=== PATIENT | female | born 1955 | race Caucasian/White ===

== ENCOUNTER → 2023-01-27 13:47 | Outpatient (BNVA) | payer MEDICARE, SELFPAY | PROVIDERS: PCP Family Medicine; Referring Provider Family Medicine | DX: S89.92XA Unspecified injury of left lower leg, initial encounter (principal); X58.XXXA Exposure to other specified factors, initial encounter; M17.12 Unilateral primary osteoarthritis, left knee | CPT/HCPCS: 99203 ==

== ENCOUNTER 2023-08-01 15:44 | Outpatient (CLI) | payer MEDICARE, SELFPAY ==
--- NOTE | 2023-08-01 10:30 | DI.RAD_ITS ---
Exam(s) XR HIP RT COMPLETE AP PELVIS EXAM: XR HIP RT COMPLETE AP PELVIS CLINICAL HISTORY: R hip pain. TECHNIQUE: 2D digital imaging was performed of the right hip. Two images were obtained. AP pelvis a nd lateral right hip views were obtained. COMPARISON: No exams were available for comparison FINDINGS: BONES: No acute fracture is present. No bony destructive lesion is seen. JOINTS: There is marked narrowing of the right hip joint space. Osteophytes are seen in the right ac etabulum and the right femoral head. The left hip is unremarkable. The sacroiliac joints and symphy sis pubis are well maintained. SOFT TISSUE: Normal. IMPRESSION: Marked osteoarthritis of the right hip. DATA REPOSITORY: RADIATION DOSE DELIVERED:
== END 2023-08-01 15:45 | disposition home or self-care (01) ==
LOC: DIORS 15:45
PROVIDERS: PCP Internal Medicine; Referring Provider Internal Medicine; Visit Provider Student in an Organized Health Care Education/Training Program
DX: M16.11 Unilateral primary osteoarthritis, right hip
CPT/HCPCS: 20611; 73502; J1040

== ENCOUNTER 2023-08-31 05:48 | Day surgery (SDC) | payer MEDICARE, SELFPAY ==
[2023-08-31] VITALS (9 sets, daily range): BP systolic 111–180; BP diastolic 44–78; PULSE 57–75; RESP 11–18; TEMP 36.1–36.4; O2SAT 95–100; BMI 32.8
[2023-08-31] MEDS: Lactated Ringers 1,000 ML 80 ML IV (06:54)
--- NOTE | 2023-08-31 07:01 | W.ANESPRE ---
General Info Date of Service Date Performed: 08/31/23 Height: 5 ft 2 in Weight: 81.6 kg Body Mass Index (BMI): 32.8 Surgical Procedure: Operation Date: 08/31/23 07:50 Proposed Procedure Side Surgeon p Hip Total Hip Anterior, ACTIS Right Nguyễn Duran MD Meds Allergies and Home Medications Allergies Allergy/AdvReac Type Severity Reaction Status Date / Time aspirin [From Aggrenox] Allergy Severe Other (See Verified 08/31/23 06:12 Comment) dipyridamole [From Aggrenox] Allergy Severe Other (See Verified 08/31/23 06:12 Comment) simvastatin [From Zocor] Allergy Intermediate Other (See Verified 08/31/23 06:12 Comment) gabapentin AdvReac Other (See Verified 08/31/23 06:12 Comment) Home Medication Medication Instructions Recorded atorvastatin 20 mg tablet 20 mg PO DAILY 01/11/23 enalapril maleate 10 mg tablet 10 mg PO DAILY 01/11/23 pantoprazole 20 mg tablet,delayed 20 mg PO DAILY 01/11/23 release acetaminophen 500 mg tablet 1,000 mg (2 x 500 mg) PO TID #90 08/31/23 tabs aspirin 81 mg tablet,delayed 81 mg PO BID #60 tabs 08/31/23 release celecoxib 200 mg capsule 200 mg PO BID #60 caps 08/31/23 dexamethasone 4 mg tablet 4 mg PO DAILY #2 tabs 08/31/23 oxycodone 5 mg tablet 5 mg PO Q4H PRN pain #20 tabs 08/31/23 Current Visit Medications: Current Medications Generic Name Dose Route Start Last Admin Trade Name Yannickq PRN Reason Stop Dose Admin Acetaminophen 1,000 mg 09/01/23 06:00 Acetaminophen 500 Mg Tab PO 10/01/23 05:59 PREOP RUSS Celecoxib 400 mg 09/01/23 06:00 Celecoxib 200 Mg Cap PO 10/01/23 05:59 PREOP RUSS Ringer's Solution 1,000 mls @ 80 mls/hr 08/31/23 06:00 08/31/23 06:54 IV 08/31/23 23:59 80 mls/hr INFUSION RUSS Administration Cefazolin Sodium/Dextrose 2 gm in 50 mls @ 100 mls/hr 08/31/23 06:00 Ancef Duplex IVPB 08/31/23 23:59 PREOP RUSS Tranexamic Acid/Sodium Chloride 100 mls @ 600 mls/hr 09/01/23 06:00 IVPB 10/01/23 05:59 PREOP [facility] IV Miscellaneous Supplies 1 each 08/31/23 06:00 Iv Access IV 08/31/23 23:59 DIRECTED RUSS Sodium Chloride 0 ml 08/31/23 06:00 Normal Saline Flush 10 Ml Syr IV 08/31/23 23:59 PRN PRN Sodium Chloride 0 ml 08/31/23 06:00 Normal Saline 10 Ml Vial IJ 08/31/23 23:59 DIRECTED PRN Sterile Water 0 ml 08/31/23 06:00 Water,Injection,Sterile 10 Ml Vial IJ 08/31/23 23:59 DIRECTED PRN PFSH Active Problems Active Problems: Problem Status Onset Code Osteoarthritis of right hip M16.11 Left knee injury S89.92XA Degenerative arthritis of left knee M17.12 Trigeminal neuralgia G50.0 Spinal stenosis in cervical region M48.02 Prediabetes R73.03 Obesity E66.9 Chronic neck pain M54.2, G89.29 Cervicogenic headache G44.86 Basal cell carcinoma of skin C44.91 Medical History Medical History Metatarsal bone fracture Hypertensive disorder Hyperlipidemia History of malignant neoplasm of uterine body GERD (gastroesophageal reflux disease) Tobacco Smoking/Tobacco Use Status: Never Alcohol Alcohol Intake: current Alcohol intake frequency: a few times a month Substance Use Substance use: Never Substance use type: does not use Vital Signs and Lab Results Vital Signs Most Recent Vital Signs in EMR: Most Recent Vital Signs Temp Pulse Resp BP Pulse Ox 36.3 C L 74 16 180/69 H 100 08/31/23 06:16 08/31/23 06:16 08/31/23 06:16 08/31/23 06:16 08/31/23 06:16 Lab Results Blood Type / Crossmatch: No Data to Display Complete Blood Count: No Data to Display Complete Metabolic Panel: No Data to Display Liver Function Panel: No Data to Display Coagulation Panel: No Data to Display Cardiac Panel: No Data to Display Arterial Blood Gas: No Data to Display Venous Blood Gas: No Data to Display Pancreas Panel: No Data to Display Thyroid Panel: No Data to Display Infectious Disease: No Data to Display Blood Cultures: No Data to Display Toxicology Panel: No Data to Display Anesthesia Assessment and Plan Anesthesia History Personal History: No History of Anesthesia Complications Family History: No Family History of Anesthesia Complications Exercise Tolerance Exercise Tolerance: Metabolic Equivalents>4 Pertinent Negatives Pertinent Negatives: No Symptoms of GERD, No Major Cardiovascular Symptoms or Complaints, No Major Pulmonary Symptoms or Complaints and No History of CVA/TIA Cardiac & Pulmonary Exam Cardiac Exam: Normal S1/S2 Heart Sounds Pulmonary Exam: Clear Bilateral Breath Sounds Implantable Cardiac Device Does patient have a Pacemaker or an ICD?: No Airway Exam Known Difficult Airway: No Mallampati Class: 2 Mouth Opening: Normal (> 3cm) Thyromental Distance: Greater than 3 cm Neck Range of Motion: Full ROM and Other (Known cervical spinal stenosis, patient denies symptoms. Reports from past trauma) Neck Circumference: Normal Teeth Condition: Normal Dentition ASA Classification ASA Score: ASA 2 Emergency Case?: No NPO Status NPO Status: NPO Clears >2 hours, Solids >8 hours Anesthesia Plan Resuscitation Status: Full Code Anesthesia Technique: Spinal Anesthesia Airway Planned: Natural Airway Monitors Used: Standard Monitors Preoperative Comments:: GERD well controlled on pantoprazole: took today
[2023-08-31] MEDS: Acetaminophen 500 MG TAB 1000 MG PO (07:12)
[2023-08-31] MEDS: Celecoxib 200 MG CAP 400 MG PO (07:13)
--- NOTE | 2023-08-31 07:20 | PDOC.DSDIS_ITS ---
Date of service: 08/31/23 Time of Service: 07:20 Discharge Plan Disposition Patient Disposition: Home Condition: Good Discharge Details Reason For Visit: R THR Attending Provider: Nguyễn Duran Primary Care Provider: Yumi Jackson Home Meds and New Rx's Prescriptions: New celecoxib 200 mg capsule 200 mg PO BID Qty: 60 0RF aspirin 81 mg tablet,delayed release (DR/EC) 81 mg PO BID Qty: 60 0RF acetaminophen 500 mg tablet 1,000 mg PO TID Qty: 90 3RF dexamethasone 4 mg tablet 4 mg PO DAILY Qty: 2 0RF oxycodone 5 mg tablet 5 mg PO Q4H MDD 6 tabs PRN (Reason: pain) Qty: 20 0RF Continued enalapril maleate 10 mg tablet 10 mg PO DAILY atorvastatin 20 mg tablet 20 mg PO DAILY pantoprazole 20 mg tablet,delayed release (DR/EC) 20 mg PO DAILY Discontinued meloxicam 7.5 mg tablet 7.5 mg PO BID aspirin [Adult Aspirin Regimen] 81 mg tablet,delayed release (DR/EC) 81 mg PO DAILY Discharge Instructions Additional Instructions: Total Hip Discharge Instructions Activity: The most important activity is to walk. You should try to take short walks a few times a day. You have no restrictions on movement or positioning, but do not try to force what you do. You will find some stiffness and weakness with hip flexion (lifting your knee). Do not try to strengthen this too early, continue to practice walking and stairs and this will come. - Outpatient physical therapy can be helpful to help return you to a normal gait and improve your flexibility and strength. This can start around 2 weeks. For some patients, it?s not necessary. Usually this is determined at the time of discharge or at the first post-operative visit. - You should wear the RADHA hose on both legs for 2 weeks. Dressing: Keep the surgical dressing in place for at least one week. After the first week it may be removed and replace with light gauze and tape or nothing. It may get wet after 3 days but avoid soaking the dressing. If it gets wet, just lightly pat dry. It is important to always keep some gauze between skin folds, especially when you are sitting. Spend some time with the wound exposed when you are lying flat as the incision does wrinkle onto itself. Medications: - You should take Tylenol and an anti-inflammatory Celebrex as your primary pain control medications. If the Celebrex is too expensive or not covered, please call the office for another alternative (Advil/Ibuprofen or Naproxen/Aleve). - You have been prescribed a stronger pain medication Oxycodone for breakthrough pain, take as needed as prescribed. - You will continue your Pantoprozole to help reduce stomach acid and reflux. - You have also been prescribed Decadron to help with post-operative nausea and pain. You will take this for two days starting tomorrow. - You will be taking Aspirin 81mg twice a day for DVT prevention unless instructed otherwise. - If you have constipation you should take Colace or Miralax (both [id number]). It takes most people 3-4 days to have a bowel movement. Follow-up: 2 weeks If you have any acute concerns or questions, please do not hesitate to contact the office at [phone]. You may contact Dr. Duran with any questions after hours through the hospital at [phone] or on his cell phone at [phone]. Referrals: Nguyễn Duran MD [ [facility]FF [facility]YSICIAN] - Equipment/Supplies: Walker Activity:: Activity as Tolerated Shower/Bathe:: 72 hours Diet:: As Tolerated DS: Diagnosis Discharge Diagnosis (1) Osteoarthritis of right hip: Status: Acute
[2023-08-31] MEDS: ceFAZolin 2 GM/50 ML BAG IVPB (07:44)
--- NOTE | 2023-08-31 07:56 | W.PM.OP ---
Date of service: 08/31/23 Time of Service: 07:56 Operative Note Operative Note DATE OF PROCEDURE: 08/31/23 PRE-OP DIAGNOSIS: Right Hip Osteoarthritis POST-OP DIAGNOSIS: same PROCEDURE: Right Anterior Total Hip Arthroplasty with Intraoperative Navigation SURGEON: Nguyễn Duran FIRE HOSE CURER: Vernon Soto ANESTHESIA TYPE: Spinal Refer to Anesthesia Record PATHOLOGY: none sent TOURNIQUET TIME: 0 COMPLICATIONS: None Patient was transported to: PACU Patient's condition: stable Implants: 1. Depuy Stinnett Acetabular Component, 48mm 2. Depuy Acetabular Liner, [id number] 3. Depuy Actis High Offset Collared Femoral Stem, Size 3 4. Depuy Altrx Ceramic Femoral Head, Size 32+1mm Indications: I have seen Taylor in clinic for symptoms of hip arthritis, confirmed with radiographic findings. Taylor has exhausted nonoperative methods and was having significant limitations in daily function and desired better function and less pain. I discussed the technical details of a hip replacement. I explained the risks of the procedure to include, but not limited to, bleeding, infection, pain, stiffness, fracture, damage to nerves and vessels, damage to muscles and tendons, loosening, instability, leg length inequality, need for repeat procedure, blood clot and cardiopulmonary demise. Despite these risks, she elected to proceed. Findings: There was significant signs of arthritis throughout the hip. Procedure Description: Taylor was greeted in the preoperative holding area where the correct side was identified and marked. The consent was reviewed with the patient and signed. The history and physical was updated. All questions were answered. She was taken back to the operating room. A spinal anesthestic was then administered. The feet were wrapped with cast padding and Coban and then placed into the boot liners and then into the boots. Care was taken to protect the skin and make sure the heels were fully down and the boots were stable. The patient was then positioned onto the HANA table. Both legs were held in a neutral position. SCDs were applied. The patient was then slid down onto a peroneal post. Prophylactic antibiotics in the form of Cefazolin were administered. 1g of Tranxemic Acid was given intravenously within 30 minutes of incision. The right leg was then prepped with Chloraprep and draped in a standard fashion. A second prep with Chloraprep was performed prior to placement of a shower-curtain type drape with Iodine impregnated skin protection. A timeout to confirm correct identity, side and site, procedure, allergies, anesthesia, and medical concerns was performed. An obliquely oriented incision was made starting lateral to the ASIS and running distal over the Tensor Fascia Karo (TFL) muscle belly toward the fibular head, approximately 10cm. The skin and soft tissue was dissected sharply, through Dontae?s fascia, and to the fascia of the TFL. With the fascia and superior border of the IT band identified, the fascia was incised with a new knife just above any perforators from the IT band. The TFL muscle belly was bluntly dissected away from the fascia and moved laterally. The fat between TFL and rectus was identified to ensure the dissection was not within the TFL. Blunt dissection created space between abductors and the capsule and retractor was placed over the lateral femoral neck. The fibers of the rectus femoris tendon were identified and these were freed from the anterior capsule. A second cobra retractor was placed around the medial femoral neck. The TFL was further retracted laterally to show the deep fascia. Careful dissection through this layer identified three main crossing vessels of the lateral femoral circumflex. These were cauterized in multiple locations and then cut without any noticeable bleeding. The TFL was further released bluntly from the deep fascia to expose anterior hip capsule and fat The Joseph orthopaedic retractor was then placed beneath the TFL and against sartorius and medial soft tissues to protect and retract the soft tissues. A T-capsulotomy was then performed starting at the superior lateral acetabulum and moving distally to the intertrochanteric ridge. These capsular flaps were tagged with a No. 1 Ethibond and elevated from within. The capsular flaps were released to the shoulder of the lateral neck and to the lesser trochanter to give excellent visualization of the proximal femur. A neck osteotomy was performed using an oscillating saw based on preoperative templates. This cut started in the shoulder and of the lateral neck and exited medially. The saw was at all times directed medially to avoid injury to the greater trochanter. Gross traction was applied to the leg and the osteotomy opened. The femoral head was removed with a corkscrew, making sure to protect the TFL on its exit. Traction was released after head removal. This was measured on the back table to determine the starting reamer size. Portions of the rectus obscuring visualization were minimally elevated off the superior acetabulum. An anterior retractor was placed over the anterior wall between capsule and labrum and attached to the Gripper retraction system. The femur was rotated to 90 degrees and medial capsule was fully released until the lesser trochanter was palpable and visible; the femur was returned to 30 degrees. A posterior retractor was placed similarly between capsule and labrum. This provided excellent visualization. The contents of the cotyloid fossa were removed with electrocautery and the labrum was removed with a knife. There was a notable floor osteophyte. There was significant chondromalacia of the superior acetabulum. Acetabular reaming began with a 44mm reamer. This first reaming was directed anterior to posterior and medial to get down to the true floor. This was inspected and reamed until the true floor was reached. The anterior retractor was then released and entry and exit was provided by traction on the capsular flaps. I then reamed sequentially up to a 48mm reamer where good fit was obtained. The larger reamers were oriented based on anatomical reference of the anterior and lateral braswell to ensure proper abduction and anteversion. Positioning and size was confirmed with the fluoroscopy. A 48mm Depuy Stinnett acetabular component was selected. The acetabulum was reamed around the periphery with the selected acetabular size to prevent a rim fit. The deep tissues were irrigated. The acetabular component was then impacted in a position of about 40-45 degrees of abduction and 15-20 degrees of anteversion, using the patient?s anatomy as the ultimate landmark. Fluoroscopy was used to confirm this. There was excellent director executive communications of the acetabular component and the inserting handle was removed. The acetabular liner, Depuy [id number] polyethylene liner, was inserted and lined up with the tines of the acetabular component. There was no soft tissue interposition. The liner was then impacted into position and confirmed to be well-seated. A portion of the donita-articular cocktail was then injected around the acetabulum into the capsule and periosteum. This cocktail consisted of 123mg of Ropivacaine, 0.25mg of Epinephrine, 0.04mg of Clonidine, and 15mg of Ketorolac, diluted to 50cc. The leg was rotated to 120 degrees. Any remaining medial capsule was released until the lesser trochanter was easily palpable. A retractor was placed medially. The lateral capsule was further released into the shoulder to allow access to the greater trochanter. A Jackson retractor was placed over the greater trochanter which allowed the trochanter to flip in front of the capsule for excellent exposure. The leg was brought down into maximal extension and 20 degrees of adduction while ensuring there was no impingement on the acetabulum. Any remnant capsule within the trochanter was released. Piriformis and obturator externis were identified and protected. There was excellent access to the proximal femur. The lateral neck remnant was removed with a rongeur. A blunt canal probe was used to identify the canal and trajectory for later broaching. A box osteotome initiated the broach course. A small curved rasp and a curved curette were used to work laterally. Broaching then began with a starter Actis broach. This was inserted manually around the trochanter and into the canal before mallet blows. The broach was seated to a few millimeters below the cut level based on the neck cut and the preoperative template. Sequential broaching was continued with the [employer] pneumatic broaching device until a tight fit was obtained with good rotational control of the femur. A trial high offset neck was inserted along with a +1 trial head. The leg was brought out of extension and adduction and then reduced with traction and internal rotation. The leg was stable anteriorly in a position of 30 degrees of extension and 90 degrees of external rotation. Fluoroscopy was used to ensure there was no fracture and the stem was seated well. Leg lengths were checked with an AP pelvis and pelvic reference points. [employer] navigation system was used to confirm appropriate positioning and leg length and offset. Once content with the desired offset and leg lengths, the leg was brought back into extension, external rotation and adduction. The periosteum and surrounding tissue was injected with remaining portion of the donita-articular cocktail. The proximal femur was irrigated as well as the deep tissues. The Depuy Actis high offset collared stem, size 2, was then manually inserted into the proximal femur making sure to control rotation. It was then malleted into position with light blows, giving breaks to allow bone expansion and decrease risk of fracture. The selected Depuy Altrx Ceramic Head, size 32+1mm, was then placed onto the clean and dry trunnion and secured with impaction onto the tapered fit. The leg was brought back out of extension and adduction and reduced with traction and internal rotation. Stability was confirmed with no shuck at 90 degrees of external rotation and 30 degrees of extension. No impingement through range of motion arc. Final x-ray images were obtained with fluoroscopy to confirm adequate positioning and no intraoperative fracture. The deep tissues were thoroughly irrigated with Surgiphor, betadine solution. This was allowed to sit in the wound for 3 minutes before being thoroughly irrigated out with normal saline. The capsule was then reapproximated with the previously placed Ethibond sutures. The TFL fascia was finally closed with a No. 2 Stratafix, barbed suture. Deep tissues were then reapproximated with 0 Vicryl and a running 2-0 Vicryl. The skin was closed with a running 4-0 Monocryl in a subcuticular fashion. This was reinforced with skin glue. A Mepilex silver dressing was applied. At the end of the case, all counts were correct. Taylor was transferred to the hospital bed without difficulty and suffering no apparent complication. Taylor has a good prognosis. Physical therapy will start today and without restrictions, weight-bearing as tolerated. Aspirin 81mg BID will be used for DVT prophylaxis.
--- NOTE | 2023-08-31 09:05 | DI.RAD_ITS ---
Exam(s) XR HIP RT IN OR EXAM: XR HIP RT IN OR CLINICAL HISTORY: OSTEOARTHRITIS RIGHT HIP. TECHNIQUE: 2D and realtime digital imaging was performed. COMPARISON: CR XR HIP RT COMPLETE AP PELVIS from 08/01/2023 FINDINGS: Hard copy images show placement of a right hip prosthesis. The alignment appears satisfactory. Please see procedure note for details. Fluoro time: 25.5seconds RADIATION DOSE DELIVERED: Ka,r=4.08 mGy
[2023-08-31] MEDS: fentaNYL 100 MCG/2 ML VIAL IVP (09:51)
--- NOTE | 2023-08-31 10:36 | W.ANESPOSTOP ---
Postoperative Evaluation Date, Time and Location Date Performed: 08/31/23 Time Performed: 10:12 Patient Location: Day Surgery Unit Vital Signs Most Recent Imported Vital Signs: Most Recent Vital Signs Temp Pulse Resp BP Pulse Ox 36.3 C L 57 L 16 145/61 H 100 08/31/23 10:10 08/31/23 10:10 08/31/23 10:10 08/31/23 10:10 08/31/23 10:10 Pain Score Most Recent Pain Score: Most Recent Pain Score Pain Level 4 08/31/23 10:00 Assessment Mental Status: Awake (Alert & Oriented to Patient Baseline) Airway and Respiratory Function: Patent airway with normal (patient baseline) respiratory exam Cardiovascular Function: Hemodynamically Stable Hydration Status: Adequately Hydrated Nausea & Vomiting: No Nausea or Vomiting Pain: Pain is tolerable per patient Peripheral Nerve Block: Patient did not receive a nerve block
[2023-08-31] MEDS: oxyCODONE 5 MG TAB PO (10:46)
--- NOTE | 2023-08-31 12:48 | PT.INIE ---
PT Notes Visit Reasons: R THR Physical Therapy Day Surgery Initial Evaluation Date: 08/31/2023 Referring Doctor: ANDREE Meadows PT Orders: PT CONSULT: S/P Ortho Surgery Precautions: WBAT on the R LE with AD. Patient Profile/Admitting Diagnosis: Taylor is a 67-year-old female with unilateral primary osteoarthritis of the right hip and status post right anterior total hip arthroplasty on postoperative day 0. PMHX: All Active Problems (Updated 08/01/23 @ 10:07 by Rema Mitchell RN) Osteoarthritis of right hip (Acute) POCUS--BUPIVICAINE ONLY Left knee injury (Acute) Degenerative arthritis of left knee (Acute) Trigeminal neuralgia (Acute) Spinal stenosis in cervical region (Acute) Prediabetes (Acute) Obesity (Chronic) Chronic neck pain (Acute) Cervicogenic headache (Acute) Basal cell carcinoma of skin (Acute) Medical History (Updated 08/01/23 @ 10:07 by Rema Mitchell RN) Metatarsal bone fracture Hypertensive disorder Hyperlipidemia History of malignant neoplasm of uterine body GERD (gastroesophageal reflux disease) Social History/Home Situation: Lives with in a private home with 6 steps to enter with a rail on one side and a wall on the other side. Independent with all aspects of ADLs prior to surgery although has had difficulty with mobility performance due to worsening arthritis. Equipment Owned/DME: None Subjective: Reported burning sensation in the R hip and side of R thigh that subsided with mobility performance. Denied headache, chest pain, and lightheadedness throughout session. Per Nurse Jaida, patient has been mobilized out of bed using walker as she felt she needed to move from beig very stiff. Objective: General Observation: ANDREW wraps to R LE. Cold pack on R hip. TEDS to L leg and foot Mental Status: A and O x 4 Pain: As above ROM: Right Lower Extremity: Hip flexion WFL. Hip abduction WFL. Knee flexion WFL. Ankle dorsiflexion WFL. Ankle plantarflexion WFL. Left Lower Extremity: Hip flexion WFL. Hip abduction WFL. Knee flexion WFL. Ankle dorsiflexion WFL. Ankle plantarflexion WFL. Strength: Right Lower Extremity: Hip flexors 4-/5. Hip abductors 4-/5. Knee flexors 4/5. Knee extensors 4-/5. Ankle dorsiflexors 5/5. Ankle plantarflexors 5/5. Left Lower Extremity:Hip flexors 5/5. Hip abductors 5/5. Knee flexors 5/5. Knee extensors 5/5. Ankle dorsiflexors 5/5. Ankle plantarflexors 5/5. Sensation: Intact as to pain and light pressure in BLE Bed Mobility/Transfers: Minimal cueing provided for use of B hands as needed for support, movement sequence, AD management, and posture to reduce fall risk and minimize pain report. Sit to stand stand by assist Stand to sit stand by assist Bed to chair stand by assist Gait: Facilitated safe and correct performance of level surface ambulation covering a distance of 150 feet using front wheeled walker with step to reciprocal heel toe gait pattern with minimal verbal cueing provided for correct to gait pattern, AD management, and posture to reduce fall risk and minimize pain report. Stairs: Facilitated safe and correct negotiation of 3 x 4 inch steps and 4 x 6 inch steps while holding onto bilateral rails with step to gait pattern requiring standby assist only and minimal verbal cueing for movement sequence, hand placement, and posture to reduce fall risk and minimize pain report. Balance: Static Sitting: Normal Dynamic Sitting: Normal Static Standing: Fair Dynamic Standing: Fair Special Tests: Mobility Limitations Standardized Measure [facility] AM-PAC 6 clicks Basic Mobility Inpatient Short Form: Raw Score: 18 CMS Score: 47% deficit Informed Consent/Education: Patient instructed in purpose of PT consult. Packet containing NANCY exercise protocol has been given to patient. Education and training on initial set of exercises that can be done at home have been completed with patient. Trained patient with correct performance of exercises below to maximize motor control, joint flexibility, soft tissue extensibility of the [] hip musculature to facilitate return to independent functional mobility performance. Access Code: [email or web address] URL: [email or web address] Date: 08/31/2023 Prepared by: Loyda Salvador Exercises - Gluteal Sets - 1 x daily - 7 x weekly - 1 sets - 10 reps - 5 hold - Supine Heel Slide - 1 x daily - 7 x weekly - 1 sets - 10 reps - 5 hold - Supine Ankle Pumps - 1 x daily - 7 x weekly - 1 sets - 10 reps - 5 hold - Seated March - 1 x daily - 7 x weekly - 1 sets - 10 reps - 5 hold - Seated Long Arc Quad - 1 x daily - 7 x weekly - 1 sets - 10 reps - 5 hold Assessment: Patient requires use of a front wheeled walker for mobility ADL performance to maximize independence and reduce fall risk. Patient presents with clinical signs and symptoms consistent with current/admitting diagnoses that have resulted to mobility limitations, gait instability, generalized weakness, and impairment of motor control as demonstrated by the following impairment level findings: 1. Decreased strength to right hip major muscle groups 2. Impaired standing balance Impairments are contributing to the following functional limitations: 1. Inability to safely ambulate without assistive device 2. Increase completion time for mobility ADL performance 3. Increased fall risk Patient is assessed as a 72759 moderate complexity based on the following: History: 67-year-old female with impairment level findings, functional limitations, and past medical history as indicated above Examination: Demonstrable impairment in strength, balance, and mobility level with underlying impairments and functional limitations as documented above Presentation: Evolving Decision Makin moderate complexity Goals: N/A. PT evaluation and 1-2 treatment sessions only for functional mobility training using recommended AD and for HEP instruction. Plan of Care/Treatment Plan: N/A. PT evaluation and 1-2 treatment session only for functional mobility training using recommended AD and for HEP instruction. DISCHARGE RECOMMENDATIONS: Home when medically cleared by orthopedic surgeon. Recommend outpatient PT services in order to optimize functional mobility outcomes and facilitate return to independent community ambulation without an assistive device. TREATMENT CODE/TIME: 60206 x 27 minutes for 1 unit (11:43-12:10) Thank you for the opportunity to participate in the care of this patient. Please sign an return this page within 30 days if you agree with the above POC. Thank you! Physician Signature Date [facility] Thank you for the opportunity to participate in the care of this patient. Loyda Salvador PT, DPT, CLT [facility] [place], [place]
== END 2023-08-31 12:40 | disposition home or self-care (01) ==
PROVIDERS: PCP Internal Medicine; Visit Provider Student in an Organized Health Care Education/Training Program
PROC: (CPT 27130; principal; 2023-08-31 07:30)
DX: M16.11 Unilateral primary osteoarthritis, right hip (principal); R73.03 Prediabetes; E66.9 Obesity, unspecified; Z68.32 Body mass index [BMI] 32.0-32.9, adult
CPT/HCPCS: 20985; 27130; C1776; 97162; 73501; J0690; J1100; J2250; J2401; J2405; J2704; J3010

== ENCOUNTER 2023-09-15 15:47 | Outpatient (CLI) | payer MEDICARE, SELFPAY ==
--- NOTE | 2023-09-15 11:03 | DI.RAD_ITS ---
Exam(s) XR HIP RT COMPLETE AP PELVIS EXAM: XR HIP RT COMPLETE AP PELVIS CLINICAL HISTORY: 1st post op S/P R NANCY. TECHNIQUE: 2D digital imaging was performed. Two views COMPARISON: CR XR HIP RT COMPLETE AP PELVIS from 08/01/2023 XA XR HIP RT IN OR from 08/31/2023 FINDINGS: BONES: No acute fracture is present. No bony destructive lesion is seen. JOINTS: No dislocation present. There has been no change in the alignment of the right hip prosthes is. The left hip joint space is maintained. SOFT TISSUE: Normal. IMPRESSION: Stable appearance of right hip prosthesis. DATA REPOSITORY: RADIATION DOSE DELIVERED:
== END 2023-09-15 15:48 | disposition home or self-care (01) ==
LOC: DIORS 15:47
PROVIDERS: PCP Internal Medicine; Visit Provider Student in an Organized Health Care Education/Training Program
DX: Z96.641 Presence of right artificial hip joint (principal); Z47.1 Aftercare following joint replacement surgery
CPT/HCPCS: 73502

== ENCOUNTER → 2023-10-13 10:40 | Outpatient (BNVA) | payer MEDICARE, SELFPAY | PROVIDERS: PCP Internal Medicine; Referring Provider Internal Medicine; Visit Provider Student in an Organized Health Care Education/Training Program | DX: Z47.1 Aftercare following joint replacement surgery (principal); Z96.641 Presence of right artificial hip joint ==

== ENCOUNTER 2024-05-09 15:15 | Outpatient (CLI) | payer MEDICARE, SELFPAY ==
--- NOTE | 2024-05-09 09:30 | DI.RAD_ITS ---
Exam(s) XR SHOULDER RT COMPLETE 2+V EXAM: XR SHOULDER RT COMPLETE 2+V CLINICAL HISTORY: RIGHT SHOULDER PAIN. TECHNIQUE: 2D digital imaging was performed of the right shoulder. Two images were obtained. Grash ey and axillary views were obtained. COMPARISON: CR XR SHOULDER MIN 2V RT from 05/25/2021 FINDINGS: BONES: No acute fracture is present. No bony destructive lesion is seen. JOINTS: No dislocation present. Mild degenerative changes are seen at the acromioclavicular joint. SOFT TISSUE: There has been interval increase in the soft tissue calcifications surrounding the acrom ioclavicular joint. Mild hypertrophic changes are seen at the AC joint. The glenohumeral joint is w ell maintained. IMPRESSION: Increased soft tissue calcifications surrounding the acromioclavicular joint. This may reflect calci fied synovium. CT scan or MRI may be considered for further evaluation. DATA REPOSITORY: RADIATION DOSE DELIVERED:
== END 2024-05-09 15:16 | disposition home or self-care (01) ==
LOC: DIORS 15:15
PROVIDERS: PCP Internal Medicine; Referring Provider Internal Medicine; Visit Provider Student in an Organized Health Care Education/Training Program
DX: M19.011 Primary osteoarthritis, right shoulder; M75.21 Bicipital tendinitis, right shoulder; M75.101 Unspecified rotator cuff tear or rupture of right shoulder, not specified as traumatic; S43.204A Unspecified dislocation of right sternoclavicular joint, initial encounter; X58.XXXA Exposure to other specified factors, initial encounter
CPT/HCPCS: 99213; 73030

== ENCOUNTER 2024-06-07 00:08 | Outpatient (CLI) | payer MEDICARE, SELFPAY ==
--- NOTE | 2024-06-07 07:15 | DI.MRI_ITS ---
Exam(s) MR UPPER JOINT RT WO EXAM: MR UPPER JOINT RT WO CLINICAL HISTORY: pain, dislocation rt SC joint, arthritis AC joint, tendonitis, RTC tear. TECHNIQUE: Multiplanar multisequence MRI was performed. COMPARISON: Plain films 09 May 2024 FINDINGS: BONES: There is no fracture or contusion pattern. JOINTS:The acromioclavicular joint shows moderate inferior spurring. Some fluid is noted at the AC j oint. The glenohumeral joint shows a small amount of fluid. TENDONS: Supraspinatus: Thickening. Focal tear anteriorly measuring 8 millimeters with retraction of approxim ately 5 millimeters. Infraspinatus: Some fluid is noted extending along the infraspinatus tendon. No focal tear is visibl e. Subscapularis: Unremarkable. Teres Minor: Unremarkable. Biceps and [place]: Unremarkable. MUSCLES: Unremarkable. GLENOID LABRUM: Unremarkable on this noncontrast examination. SOFT TISSUES: Unremarkable. BURSAE: Subacromial and subdeltoid bursae shows a moderate amount of fluid. Fluid also noted in subc oracoid bursa.. IMPRESSION: Full-thickness tear of the anterior supraspinatus tendon. Joint effusion. DATA REPOSITORY:
== END 2024-06-07 00:28 ==
LOC: DI 00:08
PROVIDERS: PCP Internal Medicine; Visit Provider Student in an Organized Health Care Education/Training Program
DX: M75.121 Complete rotator cuff tear or rupture of right shoulder, not specified as traumatic (principal)
CPT/HCPCS: 73221

== ENCOUNTER → 2024-06-20 10:00 | Outpatient (BNVA) | payer MEDICARE, SELFPAY | PROVIDERS: PCP Internal Medicine; Referring Provider Internal Medicine; Visit Provider Student in an Organized Health Care Education/Training Program | DX: M75.101 Unspecified rotator cuff tear or rupture of right shoulder, not specified as traumatic (principal); M75.21 Bicipital tendinitis, right shoulder; M19.011 Primary osteoarthritis, right shoulder; S43.204A Unspecified dislocation of right sternoclavicular joint, initial encounter; X58.XXXA Exposure to other specified factors, initial encounter; R73.03 Prediabetes | CPT/HCPCS: 36416; 83036; 99214 ==

== ENCOUNTER 2024-07-12 05:58 | Day surgery (SDC) | payer MEDICARE, SELFPAY ==
[2024-07-12] VITALS (28 sets, daily range): BP systolic 123–159; BP diastolic 48–81; PULSE 61–79; RESP 12–21; TEMP 36.1–36.4; O2SAT 96–100; BMI 29.6
[2024-07-12] MEDS: Lactated Ringers 1,000 ML 30 ML IV (07:00)
--- NOTE | 2024-07-12 07:08 | W.PM.DSUDISC ---
Date of service: 07/12/24 Discharge Plan Disposition Patient Disposition: Home Condition: Stable Discharge Details Attending Provider: Mango Ho Primary Care Provider: Yumi Jackson Home Meds and New Rx's Prescriptions: New naproxen 250 mg tablet 250 - 500 mg PO BID PRN (Reason: Moderate pain) Qty: 40 0RF oxycodone-acetaminophen [Percocet] 5-325 mg tablet 1 - 2 tab PO Q4H MDD 30 mg PRN (Reason: Moderate to severe pain) Qty: 18 0RF Continued Ozempic 0.25 mg or 0.5 mg (2 mg/3 mL) pen injector 0.25 mg subcut QWEEK Rx Instructions: for 4 weeks meloxicam 15 mg tablet 15 mg PO DAILY enalapril maleate 10 mg tablet 10 mg PO DAILY atorvastatin 20 mg tablet 20 mg PO DAILY pantoprazole 20 mg tablet,delayed release (DR/EC) 40 mg PO DAILY aspirin [Adult Low Dose Aspirin] 81 mg tablet,delayed release (DR/EC) 81 mg PO DAILY Discharge Instructions Additional Instructions: Surgery: Right shoulder arthroscopy with rotator cuff repair (large supraspinatus), biceps tenodesis, extensive debridement, subacromial decompression, and open distal clavicle excision. Activity: For 6 weeks, you should keep your arm at your side in a neutral position at all times except for physical therapy. Do not try to lift or raise your arm using your own muscles. You should use the sling whenever you are out of the house. At home it is best to remove the sling and rest the arm on a pillow at your side or support the operative side with your other hand. You may allow the arm to dangle at your side. A physical therapy prescription will be sent electronically to begin in about 3 weeks. STANDARD protocol. Prescriptions: Naproxen 250 mg take 1-2 every 12 hours with a meal as needed for moderate pain Oxycodone 5 mg take 1-2 every 4-6 hours as needed for severe pain You may use [id number] Tylenol (acetaminophen) as needed for mild pain. These pain medications may be taken all at once or in different combinations as needed. Also, recommend Colace (docusate) as a stool softener as surgery and pain medicine cause constipation. You may try [id number] diphenhydramine (Benadryl) 25-50 mg nightly as a sleep aid Dressings: Remove shoulder bandage after 3 days. Leave the sticky Steri-Strips in place until they fall off or remove them after you shower. Cover the incisions with Band-Aids or leave them open to air. You may shower after 5 days. Follow-up: 10-[address] Ho You may take off the leg compression stockings this evening at home. You may also leave them on a few days longer if you have a history of leg swelling or edema. Let us know right away if you develop any redness, drainage, fevers, chest pain, or trouble breathing. Do not drink alcohol or drive for at least 24 hours after anesthesia. Please call the office during business hours with any questions or concerns. Stand Alone Forms: Anesthesia Discharge Inst., Peter.Nerve Block Instructions, Ilan Herzog ([facility]) Referrals: Mango Ho MD [ [facility] STAFF PHYSICIAN] - 07/24/24 10:30 am Discharge Orders Discharge Orders: Discharge Order (Routine); Ordered 07/12/24 Ordered By: Mark Stephenson DS: Diagnosis Discharge Diagnosis (1) Rotator cuff tear, right: Status: Acute (2) Tendonitis of long head of biceps brachii of right shoulder: Status: Acute (3) Arthritis of right acromioclavicular joint: Status: Acute
--- NOTE | 2024-07-12 07:36 | W.ANESPRE ---
General Info Date of Service Date Performed: 07/12/24 Height: 5 ft 2 in Weight: 73.5 kg Body Mass Index (BMI): 29.6 Surgical Procedure: Operation Date: 07/12/24 07:40 Proposed Procedure Side Surgeon p Shoulder Rotator Cuff Arthroscopic w/Extensive Debridement, Biceps Tenodesis, Subacromial Decompression, Open Distal Clavicle Excision Right Mango Ho MD Pre-Op Diagnosis Post-Op Diagnosis 1) Rotator cuff tear, right: (2) Tendonitis of long head of biceps brachii of right shoulder: (3) Arthritis of right acromioclavicular joint: (4) Dislocation of right sternoclavicular joint: Meds Allergies and Home Medications Allergies Allergy/AdvReac Type Severity Reaction Status Date / Time aspirin (From Aggrenox) Allergy Severe Other (See Verified 07/12/24 06:16 Comment) dipyridamole (From Aggrenox) Allergy Severe Other (See Verified 07/12/24 06:16 Comment) simvastatin (From Zocor) Allergy Intermediate Other (See Verified 07/12/24 06:16 Comment) gabapentin AdvReac Other (See Verified 07/12/24 06:16 Comment) Home Medication ?Medication ?Instructions ?Recorded atorvastatin 20 mg tablet 20 mg PO DAILY 01/11/23 enalapril maleate 10 mg tablet 10 mg PO DAILY 01/11/23 pantoprazole 20 mg tablet,delayed 40 mg PO DAILY 01/11/23 release meloxicam 15 mg tablet 15 mg PO DAILY 05/09/24 semaglutide 0.25 mg or 0.5 mg (2 0.25 mg subcut QWEEK 05/09/24 mg/3 mL) subcutaneous pen injector (Ozempic) aspirin 81 mg tablet,delayed 81 mg PO DAILY 07/12/24 release (Adult Low Dose Aspirin) Current Visit Medications: Current Medications Generic Name Dose Route Start Last Admin Trade Name Freq PRN Reason Stop Dose Admin Ringer's Solution 1,000 mls @ 30 mls/hr 07/12/24 06:00 07/12/24 07:00 IV 07/12/24 23:59 30 mls/hr INFUSION RUSS Administration Cefazolin Sodium/Dextrose 2 gm in 50 mls @ 100 mls/hr 07/12/24 06:00 Ancef Duplex IVPB 07/12/24 23:59 PREOP RUSS Tranexamic Acid/Sodium Chloride 1,000 mg in 100 mls @ 600 mls/hr 07/12/24 06:00 IVPB 07/12/24 23:59 PREOP RUSS IV Miscellaneous Supplies 1 each 07/12/24 06:00 Iv Access IV 07/12/24 23:59 DIRECTED RUSS Oxycodone HCl 0 mg 07/12/24 07:08 Oxycodone 5 Mg Tab PO 08/11/24 07:07 Q3H PRN PRN Pain Sodium Chloride 0 ml 07/12/24 06:00 Normal Saline Flush 10 Ml Syr IV 07/12/24 23:59 PRN PRN Sodium Chloride 0 ml 07/12/24 06:00 Normal Saline 10 Ml Vial IJ 07/12/24 23:59 DIRECTED PRN Sterile Water 0 ml 07/12/24 06:00 Water,Injection,Sterile 10 Ml Vial IJ 07/12/24 23:59 DIRECTED PRN PFSH Active Problems Active Problems: Problem Status Onset Code Dislocation of right sternoclavicular joint Acute S43.204A Arthritis of right acromioclavicular joint Acute M19.011 Tendonitis of long head of biceps brachii of right shoulder Acute M75.21 Rotator cuff tear, right Acute M75.101 History of total right hip replacement Acute 08/31/23 Z96.641 Left knee injury Acute S89.92XA Degenerative arthritis of left knee Acute M17.12 Trigeminal neuralgia Acute G50.0 Spinal stenosis in cervical region Acute M48.02 Prediabetes Acute R73.03 Obesity Chronic E66.9 Chronic neck pain Acute M54.2, G89.29 Cervicogenic headache Acute G44.86 Basal cell carcinoma of skin Acute C44.91 Medical History Medical History Metatarsal bone fracture Hypertensive disorder Hyperlipidemia History of malignant neoplasm of uterine body GERD (gastroesophageal reflux disease) Surgical History Surgical History Hx of hysterectomy Tobacco Smoking/Tobacco Use Status: Never Alcohol Alcohol Intake: current Alcohol intake frequency: a few times a month Substance Use Substance use: Never Substance use type: does not use Vital Signs and Lab Results Vital Signs Most Recent Vital Signs in EMR: Most Recent Vital Signs Temp Pulse Resp BP Pulse Ox 36.3 C L 71 15 152/81 H 100 07/12/24 06:20 07/12/24 06:20 07/12/24 06:20 07/12/24 06:20 07/12/24 06:20 Lab Results Blood Type / Crossmatch: No Data to Display Complete Blood Count: No Data to Display Complete Metabolic Panel: Hemoglobin A1c 5.5 % (4.5-5.7) 06/20/24 11:29 Liver Function Panel: No Data to Display Coagulation Panel: No Data to Display Cardiac Panel: No Data to Display Arterial Blood Gas: No Data to Display Venous Blood Gas: No Data to Display Pancreas Panel: No Data to Display Thyroid Panel: No Data to Display Infectious Disease: No Data to Display Blood Cultures: No Data to Display Toxicology Panel: No Data to Display Anesthesia Assessment and Plan Anesthesia History Personal History: No History of Anesthesia Complications Family History: No Family History of Anesthesia Complications Exercise Tolerance Exercise Tolerance: Metabolic Equivalents>4 Pertinent Negatives Pertinent Negatives: No Symptoms of GERD Cardiac & Pulmonary Exam Cardiac Exam: Normal S1/S2 Heart Sounds Pulmonary Exam: Clear Bilateral Breath Sounds Implantable Cardiac Device Does patient have a Pacemaker or an ICD?: No Airway Exam Known Difficult Airway: No Mallampati Class: 2 Mouth Opening: Normal (> 3cm) Thyromental Distance: Greater than 3 cm Neck Range of Motion: Full ROM and Other (Known cervical spinal stenosis, patient denies symptoms. Reports from past trauma) Neck Circumference: Normal Teeth Condition: Normal Dentition ASA Classification ASA Score: ASA 2 Emergency Case?: No NPO Status NPO Status: NPO Clears >2 hours, Solids >8 hours Anesthesia Plan Resuscitation Status: Full Code Anesthesia Technique: General Anesthesia Airway Planned: Endotracheal Tube Pain Management: Surgeon and patient request nerve block Monitors Used: Standard Monitors
--- NOTE | 2024-07-12 07:37 | W.ANESNERVE ---
Nerve Block Single Injection Procedure Date and Time Date Performed: 07/12/24 Procedure Start: 07:25 Location Where Procedure Performed Procedure Location: Day Surgery Unit Reason Performed: Postoperative Analgesia Requesting Provider: Mango Ho Timeout Performed Timeout Performed: Yes Monitoring Used ECG, Blood Pressure and SpO2 Sterility Sterility: Hand Hygiene, Surgical Cap, Surgical Mask, Sterile Gloves and Chlorhexidine Sedation Given During Procedure Sedation Given (Indicate Dose Given): Versed IV Dose:: 2 mg Patient Mental Status Patient Mental Status: Sedate with meaningful communication Nerve Block 1st Nerve Block: Laterality: Right Block Type: Interscalene Ultrasound Image Saved?: Yes Needle / Catheter Used: 100mm SonoPlex II Local Anesthetic Bolus (Indicate Dose Given): Lidocaine used for local infiltration of skin, Injected in 3-5ml increments after negative blood aspiration, Bupivacaine 0.5% Dose:: 10 ml and Exparel Dose:: 10 ml Additives (Indicate Dose Given): Normal Saline Ultrasound: Sterile probe cover and gel used Nerve Stimulator: Supplement to Ultrasound use and No twitch or parasthesia noted < 0.5 mA Paresthesia: None Procedure Tolerated: No Complications and Patient tolerated well Procedure Outcome: Successful Performed By: David Martinez
--- NOTE | 2024-07-12 07:43 | ROE_ITS ---
Operative Note Operative Note PRE-OP DIAGNOSIS: Right: 1. Rotator cuff tear 2. LHB tendinopathy 3. Bursitis 4. ACJ arthritis POST-OP DIAGNOSIS: same PROCEDURE: Right: 1. Rotator cuff repair, CPT# 82750. This involved repair of the supraspinatus using anchors and sutures to reattach the rotator cuff back to the footprint of the greater tuberosity. 2. Arthroscopic biceps tenodesis, CPT# 89905. This involved arthroscopically suturing and reattaching the long head of the biceps tendon to the proximal humerus at the superior margin of the bicipital groove with a screw at the correct tension. 3. Extensive debridement, CPT# 15450. This involved using arthroscopic hand instruments, power instruments, and radiofrequency instruments to release the long head of the biceps tendon and debride areas of labral tearing, synovitis, and chondromalacia about the central glenoid working within the glenohumeral joint anteriorly, superiorly and posteriorly. 4. Subacromial decompression with partial acromioplasty, CPT# 33423. This involved using arthroscopic power instruments and a radiofrequency wand to complete a bursectomy and smooth the undersurface of the acromion. 5. Open distal clavicle excision, CPT #38556. This involved opening and resecting a few millimeters of the distal clavicle and smoothing the superior aspect to minimize prominence. The business services assistant was medically required in order to help assist in techniques above, which require positioning the arm, holding the arthroscope, and manipulating multiple instruments and sutures at the same time. This cannot be done without the help of an experienced business services assistant. SURGEON: Mango [employer] AUDITOR: Mark Stephenson ANESTHESIA TYPE: Local By Surgeon, General LMA/ETT and Primary Nerve Block Refer to Anesthesia Record ESTIMATED BLOOD LOSS: 10 PATHOLOGY: none sent COMPLICATIONS: None Patient was transported to: PACU Patient's condition: stable Implants: Arthrex: 4.75mm SwiveLocks x2, 5.5mm SwiveLocks x2 Indications: The patient was diagnosed with the above conditions and appropriately indicated for surgical intervention. Please see complete medical record for details. Findings: Exam under anesthesia: Full range of motion, no instability, obvious superior AC joint bony prominence Glenohumeral joint: Moderate synovitis, moderate irregular central glenoid chondromalacia. Obvious large supraspinatus rotator cuff tear with partial adversive involvement. Intact subscapularis. Unstable biceps anchor SLAP tear. Subacromial space: Moderate bursitis and mild narrowing. Large chronic?appearing -thickened and footprint fibrillations- delaminated supraspinatus rotator cuff tear with partial infraspinatus thinning involvement. Procedure Description: In the operating room, general anesthesia was induced. Bilateral shoulders were examined. The patient was positioned in the beachchair position. All bony prominences were well-padded. Preoperative antibiotics were administered. The shoulder was prepped and draped in the usual sterile fashion. The correct patient, procedure, and side of the procedure were all verified prior to incision. Starting through the posterior portal a standard complete diagnostic arthroscopy was performed of the glenohumeral joint including inspection of the long head of the biceps, anterior and superior labrum, subscapularis tendon, supraspinatus and infraspinatus tendons, and axillary recess. The glenoid and humeral head cartilage as well as the posterior labrum were inspected from an anterior viewing portal. Significant findings and interventions noted above. Starting through the posterior portal, the arthroscope was directed into the subacromial space. A lateral 50 yard line lateral portal was created. A combination of power instruments and a radiofrequency ablator were used to debride bursitis anteriorly, posteriorly, and laterally as well as expose and smooth bone spurring on the undersurface of the acromion. The coracoacromial ligament was partially released. The bursectomy was completed viewing laterally and working from posteriorly and the rotator cuff was thoroughly inspected with findings noted above. An all-arthroscopic suprapectoral biceps tenodesis was performed through an anterior portal using a Loop N Tack method with a SutureTape FiberLink cinched around and through the tendon. The biceps was tenotomized from the labrum and withdrawn out the superior anterolateral cannula for later fixation to the superior aspect of bicipital groove with the supraspinatus repair. The supraspinatus tear was chronic thickened irregular tissue margins and greater tuberosity footprint had been covered with fibrillations and soft tissue. This was all debrided to more regular margin establishing appropriate tendon tissue for repair and creating a large crescent tear, which had good excursion over the majority the prepared greater tuberosity. There were tuberosity soft tissue was removed and was lightly abraded although bone resection was minimized due to soft bone quality to optimize bone tendon healing while not compromising fixation. Modified speed bridge construct was done with 2 medial row anchors nicely spaced 4.75 mm SwiveLock's. The anterior anchor was used to secure the biceps tenodesis at the superior aspect of the bicipital groove and the knotless repair suture was then shuttled through the tendon and back through the anchor eyelet mechanism and an additional excellent security of the biceps tenodesis. Biceps testing had excellent stability. The 4 tails of the medial FiberTape's were passed individually through the supraspinatus at the appropriate levels using the scorpion with spacing to accommodate the large tear as well as best secure the chronic and older tendon tissue. An anterior and posterior FiberTape was then brought out laterally and secured to an anterior lateral row 5.5 mm SwiveLock anchor chosen due to very soft bone quality laterally with additional suture tape FiberLink placed in cinch mode in the central aspect of the tear. Lastly a final 5.5 mm lateral SwiveLock was deployed posteriorly containing the remaining tapes with additional suture tape FiberLink centered over the posterior most aspect of the tear incorporating the infraspinatus wrapping around. There was excellent tissue reduction and compression. Fixation was very good especially considering the soft bone quality. The thickened tendon had nice appearance over the prepared bony footprint. The shoulder was drained of arthroscopic fluid. A small transverse incision was made over the AC joint distal clavicle prominence. Fascia superior capsule was incised full-thickness for later repair. The obvious bony prominence was removed with rongeur as well as a few millimeters distal clavicle and all of the ends were rasped and confirmed to be smooth. The AC joint was thoroughly irrigated. 0 Vicryl [id number] Liriano was used to close tightly the superior capsule and deep stone tissue layers. 2-0 Monocryl buried interrupted subcuticular followed by 3-0 Monocryl for the skin. All portal sites were copiously irrigated. These incisions were closed using 3-0 Monocryl in a buried fashion and then covered with Mastisol, Steri-Strips, Xeroform, dry gauze, and ABDs. The dressings were covered and secured with Medipore tape. The operative extremity was placed into a sling for immobilization. The patient awoke from anesthesia without complication and was transferred to the recovery room in a stable condition. Date of Procedure: 07/12/24
[2024-07-12] MEDS: ceFAZolin 2 GM/50 ML BAG IVPB (08:03)
[2024-07-12] MEDS: TRANEXAMIC ACID/SOD. CHL. 1,000 MG/100 ML BAG 600 MG IVPB (08:21)
[2024-07-12] MEDS: Bupivacaine 0.25% Pres-Free W/EPI 30 ML VIAL (08:42)
[2024-07-12] MEDS: EPINEPHrine 10 MG/10 ML ML (09:42)
--- NOTE | 2024-07-12 11:29 | W.ANESPOSTOP ---
Postoperative Evaluation Date, Time and Location Date Performed: 07/12/24 Time Performed: 11:22 Patient Location: Day Surgery Unit Vital Signs Most Recent Imported Vital Signs: Most Recent Vital Signs Temp Pulse Resp BP Pulse Ox 36.4 C L 64 20 154/54 H 98 07/12/24 10:45 07/12/24 11:05 07/12/24 11:05 07/12/24 11:01 07/12/24 11:05 Pain Score Most Recent Pain Score: Most Recent Pain Score Pain Level 2 07/12/24 11:05 Assessment Mental Status: Awake (Alert & Oriented to Patient Baseline) Airway and Respiratory Function: Patent airway with normal (patient baseline) respiratory exam Cardiovascular Function: Hemodynamically Stable Hydration Status: Adequately Hydrated Nausea & Vomiting: No Nausea or Vomiting Pain: Pt. Denies Any Pain Peripheral Nerve Block: Regional nerve block not resolved at time of post operative discharge
[2024-07-12] MEDS: oxyCODONE 5 MG TAB PO (12:06)
== END 2024-07-12 13:30 | disposition home or self-care (01) ==
PROVIDERS: PCP Internal Medicine; Visit Provider Student in an Organized Health Care Education/Training Program
PROC: (CPT 29827; principal; 2024-07-12 07:30)
DX: M75.101 Unspecified rotator cuff tear or rupture of right shoulder, not specified as traumatic (principal); M75.21 Bicipital tendinitis, right shoulder; M19.011 Primary osteoarthritis, right shoulder; M75.51 Bursitis of right shoulder; G89.18 Other acute postprocedural pain
CPT/HCPCS: 29827; 29828; 29823; 29826; 64415; J0131; J0665; J0666; J0690; J1100; J1885; J2250; J2371; J2405; J2704; J3010; J3475

== ENCOUNTER → 2024-07-24 10:30 | Outpatient (BNVA) | payer MEDICARE, SELFPAY | PROVIDERS: PCP Internal Medicine; Referring Provider Internal Medicine; Visit Provider Student in an Organized Health Care Education/Training Program | DX: Z47.89 Encounter for other orthopedic aftercare (principal); M75.21 Bicipital tendinitis, right shoulder | CPT/HCPCS: 99024 ==

== ENCOUNTER 2024-08-30 15:35 | Outpatient (CLI) | payer MEDICARE, SELFPAY ==
--- NOTE | 2024-08-30 09:45 | DI.RAD_ITS ---
Exam(s) XR HIP RT AP LAT ONLY EXAM: XR HIP RT AP LAT ONLY INDICATION: ANNUAL F/U R NANCY. COMPARISON: CR XR HIP RT COMPLETE AP PELVIS from 09/15/2023 TECHNIQUE: 2D digital imaging was performed. Two views. FINDINGS: Stable alignment of right hip prosthesis. No abnormal surrounding lucencies. DATA REPOSITORY: RADIATION DOSE DELIVERED:
== END 2024-08-30 15:36 | disposition home or self-care (01) ==
LOC: DIORS 15:35
PROVIDERS: PCP Internal Medicine; Visit Provider Student in an Organized Health Care Education/Training Program
DX: Z47.1 Aftercare following joint replacement surgery (principal); Z96.641 Presence of right artificial hip joint
CPT/HCPCS: 99213; 73502

== ENCOUNTER → 2024-09-11 09:50 | Outpatient (BNVA) | payer MEDICARE, SELFPAY | PROVIDERS: PCP Internal Medicine; Referring Provider Internal Medicine; Visit Provider Student in an Organized Health Care Education/Training Program | DX: M75.101 Unspecified rotator cuff tear or rupture of right shoulder, not specified as traumatic (principal); M75.21 Bicipital tendinitis, right shoulder; M19.011 Primary osteoarthritis, right shoulder | CPT/HCPCS: 99024 ==

== ENCOUNTER → 2024-10-30 09:29 | Outpatient (BNVA) | payer MEDICARE, SELFPAY | PROVIDERS: PCP Internal Medicine; Referring Provider Internal Medicine; Visit Provider Student in an Organized Health Care Education/Training Program | DX: M75.101 Unspecified rotator cuff tear or rupture of right shoulder, not specified as traumatic (principal); M75.21 Bicipital tendinitis, right shoulder; M19.011 Primary osteoarthritis, right shoulder | CPT/HCPCS: 99213 ==